=== PATIENT | male | born 1990 | race Caucasian/White ===

== ENCOUNTER 2016-10-15 17:58 | Inpatient (IN) | payer BC ==
[2016-10-15 18:03] VITALS: O2SAT 100
[2016-10-15] MEDS ORDERED: PROPOFOL 1000 MG/100 ML INJ 100 ML ONE (18:06)
[2016-10-15] MEDS ORDERED: DIPHTH/TETANUS/ACEL PERTUSSIS (BOOSTER) 0.5 ML VIAL/PFS IM ONE ×2 (18:07→18:23)
[2016-10-15] MEDS ORDERED: ceFAZolin 2 GM PREMIX 50 ML ONE (18:07)
[2016-10-15] MEDS ORDERED: LORazepam 2 MG/ML VIAL ONE ×2 (18:19→19:12)
[2016-10-15] MEDS ORDERED: fentaNYL CITRATE 250 MCG/5 ML AMP ONE (18:21)
[2016-10-15] MEDS ORDERED: ceFAZolin 2 GM PREMIX 50 ML IV STA (18:23)
[2016-10-15 18:26] LABS: AUTOMATED NEUTROPHIL # 9.7 TH/MM3 (1.8-7.7); BASOPHIL # 0.1 TH/MM3 (0-0.2); BASOPHIL % 0.3 % (0.0-2.0); EOSINOPHIL # 0.1 TH/MM3 (0-0.4); EOSINOPHIL % 0.4 % (0.0-4.0); HEMATOCRIT 45.6 % (39.0-51.0); LYMPH % 35.6 % (9.0-44.0); LYMPHOCYTE # 6.2 TH/MM3 (1.0-4.8); MEAN CELL VOLUME 87.2 FL (80.0-100.0); MEAN CORPUSCULAR HEMOGLOBIN 29.8 PG (27.0-34.0); MEAN CORPUSCULAR HGB CONC 34.2 % (32.0-36.0); MONO % 8.1 % (0.0-8.0); NEUT % 55.6 % (16.0-70.0); PLATELET COUNT 443 TH/MM3 (150-450); RED BLOOD COUNT 5.23 MIL/MM3 (4.50-5.90); RED CELL DISTRIBUTION WIDTH 12.8 % (11.6-17.2); WHITE BLOOD COUNT 17.5 TH/MM3 (4.0-11.0)
[2016-10-15 18:29] LABS: HEMO FLAGS AUTO DIFF
[2016-10-15] MEDS ORDERED: fentaNYL DRIP 250 ML ONE (18:29)
[2016-10-15] MEDS ORDERED: LORazepam 2 MG/ML VIAL IV PUSH ONE (18:30)
[2016-10-15] MEDS ORDERED: fentaNYL DRIP 250 ML IV SCH (18:30)
[2016-10-15] MEDS ORDERED: MANNITOL 12.5 GM/50 ML IV ONE (18:30)
[2016-10-15] MEDS ORDERED: [UNRECOGNIZED DRUG - OTHER] IV ONE (18:30)
[2016-10-15] MEDS ORDERED: PROPOFOL 1000 MG/100 ML INJ 100 ML IV SCH (18:30)
[2016-10-15] MEDS ORDERED: levETIRAcetam 1000 MG INJ 100 ML IV ONE (18:30)
[2016-10-15 18:35] LABS: APTT (PATIENT) 22.6 SEC (24.3-30.1); PROTHROMBIN TIME - PATIENT 10.6 SEC (9.8-11.6)
[2016-10-15 18:37] LABS: I-STAT POTASSIUM 2.9 MMOL/L (3.5-4.9)
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
[2016-10-15] MEDS ORDERED: IOHEXOL 350 MG/ML 10 ML VIAL (for RAD DIAG) IV ONE (18:44)
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
[2016-10-15 18:49] LABS: BICARBONATE 22.7 MEQ/L (21.0-32.0)
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
[2016-10-15 18:52] LABS: POTASSIUM 2.9 MEQ/L (3.5-5.1)
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
[2016-10-15] MEDS ORDERED: SODIUM CHLORIDE 0.9% FLUSH 5 ML FLUSH IV FLUSH PRN (19:00)
[2016-10-15] MEDS ORDERED: CHLORHEXIDINE GLUCONATE 2 % 1 PACK (2 CLOTHS) TOP PRN (19:00)
[2016-10-15] MEDS: POTASSIUM CHLOR 20 MEQ PREMIX 100 ML IV SCH ×2 (19:00→21:00)
[2016-10-15] MEDS ORDERED: MISCELLANEOUS NURSING INFORMATION XX SCH (19:00)
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
[2016-10-15] MEDS ORDERED: ETOMIDATE 20 MG/10 ML VIAL ONE ×2 (19:13→19:14)
[2016-10-15] MEDS ORDERED: MANNITOL INJ 50 ML ONE (19:15)
[2016-10-15 19:18] LABS: PLATELET ESTIMATE SMEAR HIGH (NORMAL); PLATELET MORPHOLOGY NORMAL (NORMAL); SCAN/DIFF AUTO DIFF CONFIRMED
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
[2016-10-15 20:00] VITALS: BP 120/70; PULSE 119; RESP 14; TEMP 97.7; O2SAT 100
[2016-10-15] MEDS: SODIUM CHLOR 0.9% 1000 ML INJ 1,000 ML IV SCH (20:00)
[2016-10-15] MEDS: LACTULOSE SYRUP 20 GM/30 ML CUP PO SCH (20:00)
[2016-10-15 20:40] VITALS: O2SAT 100
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
[2016-10-15] MEDS: SODIUM CHLORIDE 0.9% FLUSH 5 ML FLUSH IV FLUSH SCH (21:00)
[2016-10-15] MEDS: levETIRAcetam INJ 500 MG in SODIUM CHLORIDE 0.9% INJ 100 ML IV SCH (21:00)
[2016-10-15 21:09] LABS: BLOOD GAS BASE EXCESS -7.6 mmol/L (-2-2); BLOOD GAS CARBOXYHEMOGLOBIN 0.7 % (0-4); BLOOD GAS HCO3 19 mmol/L (22-26); BLOOD GAS METHEMOGLOBIN 1.1 % (0-2); BLOOD GAS O2 HGB SATURATION 98 % (90-100); BLOOD GAS OXYGEN CONTENT 20.3 Vol % (12.0-20.0); BLOOD GAS PCO2 46 mmHg (38-42); BLOOD GAS PO2 294 mmHg (61-120); BLOOD GAS TOTAL HGB 14.3 G/DL (12.0-16.0); TEMP CORR TO 98.6
[2016-10-15 21:10] LABS: CRITICAL VALUE YES; DRAW SITE RT RADIAL; FIO2 60 %; NUMBER OF ARTERIAL PUNCTURES 1; OXYGEN DEVICE VENTILATOR; STAT NO; ULNAR PULSE PRESENT; VENT SETTINGS PRVC/AC
[2016-10-15] MEDS: PROPOFOL 1000 MG/100 ML INJ 100 ML IV SCH (21:24)
[2016-10-15] MEDS: MIDAZOLAM HCL 2 MG/2 ML VIAL IV PUSH SCH ×2 (21:24→23:48)
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
[2016-10-15 23:00] VITALS: PULSE 119; O2SAT 100
[2016-10-16] VITALS (18 sets, daily range): BP systolic 95–144; BP diastolic 51–84; PULSE 77–126; RESP 14; TEMP 98.1–100.9; O2SAT 100
[2016-10-16] MEDS: MIDAZOLAM HCL 2 MG/2 ML VIAL IV PUSH SCH ×12 (02:15→22:39)
[2016-10-16] MEDS: fentaNYL DRIP 250 ML IV SCH ×2 (02:16→14:56)
[2016-10-16] MEDS: PROPOFOL 1000 MG/100 ML INJ 100 ML IV SCH ×6 (02:18→20:06)
[2016-10-16] MEDS: CHLORHEXIDINE GLUCONATE 2 % 1 PACK (2 CLOTHS) TOP SCH (04:00)
[2016-10-16] MEDS: SODIUM CHLOR 0.9% 1000 ML INJ 1,000 ML IV SCH ×3 (04:00→16:46)
[2016-10-16] MEDS: PANTOPRAZOLE SODIUM 40 MG VIAL IV SCH ×2 (04:39→08:42)
[2016-10-16 06:21] LABS: AUTOMATED NEUTROPHIL # 10.5 TH/MM3 (1.8-7.7); BASOPHIL % 0.1 % (0.0-2.0); EOSINOPHIL % 0.2 % (0.0-4.0); HEMATOCRIT 35.9 % (39.0-51.0); HEMO FLAGS DIFF FINAL; LYMPH % 16.7 % (9.0-44.0); LYMPHOCYTE # 2.3 TH/MM3 (1.0-4.8); MEAN CORPUSCULAR HEMOGLOBIN 30.4 PG (27.0-34.0); MEAN CORPUSCULAR HGB CONC 35.4 % (32.0-36.0); MONO % 7.3 % (0.0-8.0); NEUT % 75.7 % (16.0-70.0); PLATELET COUNT 246 TH/MM3 (150-450); RED BLOOD COUNT 4.18 MIL/MM3 (4.50-5.90); RED CELL DISTRIBUTION WIDTH 12.9 % (11.6-17.2); WHITE BLOOD COUNT 13.9 TH/MM3 (4.0-11.0)
[2016-10-16 06:44] LABS: BICARBONATE 24.6 MEQ/L (21.0-32.0); POTASSIUM 3.6 MEQ/L (3.5-5.1)
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
[2016-10-16 07:09] LABS: CALCIUM-PROTEIN CORRECTED 7.7 MG/DL (8.5-10.1)
--- NOTE | 2016-10-16 07:20 | RADRPT ---
EXAM DATE/TIME: 10/16/2016 04:13 [facility] COMPARISON: CHEST SINGLE AP, October 15, 2016, 17:50. INDICATIONS : Shortness of breath. MEDICAL HISTORY : None. SURGICAL HISTORY : None. ENCOUNTER: Subsequent ACUITY: 2 days PAIN SCORE: Non-responsive. LOCATION: Bilateral chest FINDINGS: Endotracheal tube tip in satisfactory position. NG coiled in stomach. No focal consolidation or effus ion. No pneumothorax. CONCLUSION: 1. Endotracheal tube and nasogastric tube in satisfactory position. Lungs are clear. Ede Mclain MD on October 16, 2016 at 7:17 Board Certified Radiologist. This report was verified electronically.
[2016-10-16] MEDS ORDERED: MAGNESIUM OXIDE 400 MG TAB PO PRN (08:30)
[2016-10-16] MEDS ORDERED: POTASSIUM PHOSPHATE INJ 30 MMOL in SODIUM CHLOR 0.9% 250 ML INJ 250 ML IV PRN (08:30)
[2016-10-16] MEDS ORDERED: MAGNESIUM SULFATE INJ 4 GM in SODIUM CHLORIDE 0.9% INJ 92 ML IV PRN (08:30)
[2016-10-16] MEDS ORDERED: MAGNESIUM SULFATE INJ 2 GM in SODIUM CHLORIDE 0.9% INJ 96 ML IV PRN (08:30)
[2016-10-16] MEDS ORDERED: SODIUM PHOSPHATE INJ 30 MMOL in SODIUM CHLOR 0.9% 250 ML INJ 240 ML IV PRN (08:30)
[2016-10-16] MEDS ORDERED: POTASSIUM PHOSPHATE MONOBASIC 500 MG TAB PO/TUBE PRN (08:30)
[2016-10-16] MEDS ORDERED: POTASSIUM CHLOR 40 MEQ PREMIX 100 ML IV PRN ×2 (08:30)
[2016-10-16] MEDS ORDERED: POTASSIUM PHOSPHATE MONOBASIC 500 MG TAB PO PRN (08:30)
[2016-10-16] MEDS ORDERED: POTASSIUM CHLOR 20 MEQ PREMIX 100 ML IV PRN ×2 (08:30)
[2016-10-16] MEDS: levETIRAcetam INJ 500 MG in SODIUM CHLORIDE 0.9% INJ 100 ML IV SCH ×2 (08:42→20:05)
[2016-10-16] MEDS: LACTULOSE SYRUP 20 GM/30 ML CUP PO SCH ×2 (08:42→08:43)
[2016-10-16] MEDS: SODIUM CHLORIDE 0.9% FLUSH 5 ML FLUSH IV FLUSH SCH ×2 (08:43→20:05)
[2016-10-16] MEDS ORDERED: DOCUSATE SODIUM 50 MG/SENNA 8.6 MG TAB PO SCH (09:00)
[2016-10-16 09:15] LABS: MAGNESIUM 1.5 MG/DL (1.5-2.5)
[2016-10-16] MEDS ORDERED: COMMODE 3-IN-11 MIS (09:36)
[2016-10-16] MEDS ORDERED: WALKER WHEELS/F1 MIS (09:36)
[2016-10-16] MEDS ORDERED: CRUTMIS25 (09:36)
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
[2016-10-16] MEDS ORDERED: ceFAZolin INJ 1,000 MG VIAL IV ONE (10:35)
[2016-10-16] MEDS ORDERED: ASPI325T PO (10:37)
[2016-10-16] MEDS ORDERED: NORC5TAB PO (10:37)
[2016-10-16] MEDS ORDERED: ENOX40P SQ (10:37)
[2016-10-16] MEDS ORDERED: GENTAMICIN SULFATE 80 MG/2 ML VIAL ONE (10:42)
[2016-10-16] MEDS ORDERED: VANCOMYCIN HCL 1000 MG VIAL ONE (10:42)
[2016-10-16] MEDS ORDERED: MISCELLANEOUS PHARMACY INFORMATION XX ONE (10:45)
[2016-10-16] MEDS ORDERED: MISCELLANEOUS NURSING INFORMATION XX PRN (10:45)
[2016-10-16] MEDS ORDERED: Post-op Orders (for Pharmacy) MISC XX ONE (10:45)
[2016-10-16] MEDS ORDERED: MAGNESIUM HYDROXIDE SUSP 30 ML CUP PO PRN (10:45)
--- NOTE | 2016-10-16 11:56 | PD.OP ---
cc: Paulie Mckeon MD Operative Report Date of Surgery: Oct 16, 2016 Preoperative Diagnosis: Left tibia closed tibia fracture Postoperative Diagnosis: Left grade 1 open tibia fracture Procedure: Left lower leg irrigation and debridement of skin through bone for open fracture. Left lower extremity treatment of tibia fracture with intramedullary nail. Implants: Synthes, 10 x 330. Anesthesia: Gen. Surgeon: Paulie Mckeon Office System Analyst(s): JUNG Reyes The surgical procedure was assisted by my Advanced Registered Nurse Practitioner. My INSTRUMENT MECHANICS SUPERVISOR presence was necessary throughout this case for the manipulation and positioning of the surgical extremity. My INSTRUMENT MECHANICS SUPERVISOR was assisting me throughout the duration of this procedure. The skill set of an Advance Registered Nurse Practitioner was medically necessary to complete this procedure. During the surgical case, the surgical elastic knitter was working at the back table and the Advance Registered Nurse Practitioner was directly assisting me. Operation and Findings: The patient was already intubated and came from the ICU. I got a chance to talk to his mother before surgery and we discussed the risks and benefits of surgical management. She understands the risks of surgery include injury to nerves, blood vessels, bleeding, need for further surgery, nonunion, malunion, DVT, pulmonary embolus, heart attack, stroke, and . The patient received intravenous Ancef and vancomycin. The left lower extremity was prepped and draped in the usual sterile fashion. We found a very small pinhole wound about the medial proximal tibia with some fat coming out of this which meant that this was a grade 1 open fracture. The skin edges were very clean. The skin was incised and we irrigated deep with minimal debridement of devitalized fat. We clean the end of the tibia. We made a small incision in line through the quadriceps tendon placed a protective sheath within the joint. Placed a guidewire for the appropriate starting point and then reamed proximally. We placed a ball-tipped guidewire down past the fracture. We sequentially reamed up to size 11. We placed a 10 mm nail into position. The fracture in AP was anatomic. The fracture on the lateral was mildly displaced but with no significant angulation. This displacement was because of local combination. The nail was secured distally with 2 screws which had excellent purchase. We back slapped the fracture to compress it nicely. We secured it proximally with 3 screws. We irrigated the joint to remove any debris. We closed the quadriceps tendon with 0 Vicryl. We closed skin with 2-0 Vicryl followed by gumaro. A splint was applied. Postoperative plan is 3 days of intravenous antibiotics for the open fracture. Nonweightbearing on the left lower extremity. DVT prophylaxis with Lovenox followed by aspirin. Paulie Mckeon MD Oct 16, 2016 11:56
[2016-10-16] MEDS ORDERED: fentaNYL CITRATE 250 MCG/5 ML AMP ONE (12:17)
--- NOTE | 2016-10-16 14:27 | RADRPT ---
EXAM DATE/TIME: 10/16/2016 11:16 [facility] COMPARISON: TIBIA/FIBULA LEFT (AP/LAT), October 15, 2016, 17:50. INDICATIONS : Open reduction internal fixation. MEDICAL HISTORY : None. SURGICAL HISTORY : None. ENCOUNTER: Subsequent ACUITY: 2 days PAIN SCORE: Non-responsive. LOCATION: Left tibia. FINDINGS: Status post internal fixation for fractures of the tibia. There is good alignment and position of the fracture fragments. There is good alignment of the internal fixation device. There is good alignment at the knee and ankle. Hardware is grossly intact. CONCLUSION: Good position and alignment on postoperative study. Aaron King MD on October 16, 2016 at 14:24 Board Certified Radiologist. This report was verified electronically.
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
[2016-10-16 16:25] LABS: AUTOMATED NEUTROPHIL # 10.6 TH/MM3 (1.8-7.7); BASOPHIL % 0.1 % (0.0-2.0); EOSINOPHIL # 0.1 TH/MM3 (0-0.4); EOSINOPHIL % 0.5 % (0.0-4.0); HEMATOCRIT 35.9 % (39.0-51.0); HEMO FLAGS DIFF FINAL; LYMPH % 14.6 % (9.0-44.0); LYMPHOCYTE # 2.1 TH/MM3 (1.0-4.8); MEAN CELL VOLUME 87.6 FL (80.0-100.0); MEAN CORPUSCULAR HEMOGLOBIN 29.4 PG (27.0-34.0); MEAN CORPUSCULAR HGB CONC 33.6 % (32.0-36.0); MONO % 10.9 % (0.0-8.0); NEUT % 73.9 % (16.0-70.0); PLATELET COUNT 209 TH/MM3 (150-450); RED CELL DISTRIBUTION WIDTH 13.1 % (11.6-17.2); WHITE BLOOD COUNT 14.3 TH/MM3 (4.0-11.0)
[2016-10-16] MEDS: CHLORHEXIDINE 0.12% (ORAL KIT) 15 ML CUP MT SCH (20:05)
[2016-10-16] MEDS: DOCUSATE SODIUM 50 MG/SENNA 8.6 MG TAB PO SCH (20:05)
[2016-10-17] VITALS (17 sets, daily range): BP systolic 116–135; BP diastolic 60–77; PULSE 91–142; RESP 11–20; TEMP 98.8–99.9; O2SAT 96–100
[2016-10-17] MEDS: PROPOFOL 1000 MG/100 ML INJ 100 ML IV SCH ×3 (00:38→04:26)
[2016-10-17] MEDS: fentaNYL DRIP 250 ML IV SCH (00:39)
[2016-10-17] MEDS: MIDAZOLAM HCL 2 MG/2 ML VIAL IV PUSH SCH ×5 (02:22→08:00)
[2016-10-17] MEDS: SODIUM CHLOR 0.9% 1000 ML INJ 1,000 ML IV SCH (04:00)
[2016-10-17] MEDS: CHLORHEXIDINE GLUCONATE 2 % 1 PACK (2 CLOTHS) TOP SCH (04:00)
[2016-10-17 04:16] LABS: AUTOMATED NEUTROPHIL # 9.1 TH/MM3 (1.8-7.7); BASOPHIL % 0.2 % (0.0-2.0); EOSINOPHIL # 0.2 TH/MM3 (0-0.4); EOSINOPHIL % 1.4 % (0.0-4.0); HEMATOCRIT 33.5 % (39.0-51.0); HEMO FLAGS DIFF FINAL; LYMPH % 15.7 % (9.0-44.0); LYMPHOCYTE # 1.9 TH/MM3 (1.0-4.8); MEAN CELL VOLUME 86.8 FL (80.0-100.0); MEAN CORPUSCULAR HEMOGLOBIN 30.3 PG (27.0-34.0); MEAN CORPUSCULAR HGB CONC 34.9 % (32.0-36.0); NEUT % 75.7 % (16.0-70.0); PLATELET COUNT 214 TH/MM3 (150-450); RED BLOOD COUNT 3.86 MIL/MM3 (4.50-5.90); RED CELL DISTRIBUTION WIDTH 13.3 % (11.6-17.2)
[2016-10-17 05:18] LABS: ALKALINE PHOSPHATASE 45 U/L (45-117); ALT (GPT) 30 U/L (12-78); TOTAL BILIRUBIN ADULT 0.6 MG/DL (0.2-1.0)
[2016-10-17 05:20] LABS: ANION GAP 9 MEQ/L (5-15); AST (GOT) 44 U/L (15-37); BICARBONATE 27.3 MEQ/L (21.0-32.0); BLOOD UREA NITROGEN 6 MG/DL (7-18); CHLORIDE 107 MEQ/L (98-107); GLOMERULAR FILTRATION RATE 97 ML/MIN (>89); MAGNESIUM 1.6 MG/DL (1.5-2.5); POTASSIUM 3.6 MEQ/L (3.5-5.1); SODIUM (NA) 143 MEQ/L (136-145)
--- NOTE | 2016-10-17 06:14 | RADRPT ---
EXAM DATE/TIME: 10/17/2016 04:40 [facility] COMPARISON: CHEST SINGLE AP, October 16, 2016, 4:13. INDICATIONS : Shortness of breath. MEDICAL HISTORY : None. SURGICAL HISTORY : None. ENCOUNTER: Subsequent ACUITY: 3 days PAIN SCORE: Non-responsive. LOCATION: Bilateral chest FINDINGS: Endotracheal tube tip in satisfactory position. NG enters stomach. No new infiltrate or effusion. No pneumothorax. CONCLUSION: 1. Endotracheal tube and nasogastric tube unchanged. No acute findings. Ede Mclain MD on October 17, 2016 at 6:12 Board Certified Radiologist. This report was verified electronically.
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
[2016-10-17] MEDS: CHLORHEXIDINE 0.12% (ORAL KIT) 15 ML CUP MT SCH (08:00)
[2016-10-17] MEDS: PANTOPRAZOLE SODIUM 40 MG VIAL IV SCH (08:41)
[2016-10-17] MEDS: levETIRAcetam INJ 500 MG in SODIUM CHLORIDE 0.9% INJ 100 ML IV SCH ×2 (08:41→21:00)
[2016-10-17] MEDS: DOCUSATE SODIUM 50 MG/SENNA 8.6 MG TAB PO SCH ×2 (08:41→21:00)
[2016-10-17] MEDS: SODIUM CHLORIDE 0.9% FLUSH 5 ML FLUSH IV FLUSH SCH (08:41)
[2016-10-17] MEDS: LACTULOSE SYRUP 20 GM/30 ML CUP PO SCH (08:41)
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
[2016-10-17] MEDS ORDERED: MORPHINE SULFATE 4 MG/ML INJ IV PRN (10:45)
[2016-10-17] MEDS: ENOXAPARIN SODIUM 40 MG/0.4 ML SYRINGE SQ SCH (10:56)
[2016-10-17] MEDS: oxyCODONE/ACETAMINOPHEN 5 MG/325 MG TAB PO PRN ×3 (10:56→22:45)
[2016-10-17] MEDS ORDERED: SODIUM CHLORIDE FLUSH PRN IVF (11:00)
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
[2016-10-17] MEDS ORDERED: METOPROLOL TARTRATE 5 MG/5 ML VIAL IV PUSH SCH (18:00)
[2016-10-17] MEDS: MAGNESIUM SULFATE 1 GM PREMIX 100 ML IV SCH ×2 (18:16→21:00)
[2016-10-17] MEDS: METOPROLOL TARTRATE 25 MG TAB PO SCH (21:00)
[2016-10-17] MEDS: SODIUM CHLORIDE FLUSH BID IVF SCH (21:01)
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
[2016-10-18] VITALS (11 sets, daily range): BP systolic 121–133; BP diastolic 59–89; PULSE 96–123; RESP 18–22; TEMP 98.5–99.7; O2SAT 97–100
[2016-10-18] MEDS: oxyCODONE/ACETAMINOPHEN 5 MG/325 MG TAB PO PRN ×4 (03:18→21:11)
[2016-10-18] MEDS: CHLORHEXIDINE GLUCONATE 2 % 1 PACK (2 CLOTHS) TOP SCH (04:00)
[2016-10-18 04:14] LABS: AUTOMATED NEUTROPHIL # 8.6 TH/MM3 (1.8-7.7); BASOPHIL % 0.3 % (0.0-2.0); EOSINOPHIL # 0.2 TH/MM3 (0-0.4); EOSINOPHIL % 1.6 % (0.0-4.0); HEMO FLAGS DIFF FINAL; LYMPH % 14.8 % (9.0-44.0); LYMPHOCYTE # 1.7 TH/MM3 (1.0-4.8); MEAN CELL VOLUME 85.2 FL (80.0-100.0); MEAN CORPUSCULAR HEMOGLOBIN 29.7 PG (27.0-34.0); MEAN CORPUSCULAR HGB CONC 34.9 % (32.0-36.0); MONO % 6.6 % (0.0-8.0); NEUT % 76.7 % (16.0-70.0); PLATELET COUNT 203 TH/MM3 (150-450); RED BLOOD COUNT 3.63 MIL/MM3 (4.50-5.90); RED CELL DISTRIBUTION WIDTH 12.6 % (11.6-17.2); WHITE BLOOD COUNT 11.2 TH/MM3 (4.0-11.0)
[2016-10-18 04:31] LABS: ANION GAP 9 MEQ/L (5-15); BICARBONATE 25.8 MEQ/L (21.0-32.0); BLOOD UREA NITROGEN 3 MG/DL (7-18); CHLORIDE 105 MEQ/L (98-107); MAGNESIUM 2.1 MG/DL (1.5-2.5); POTASSIUM 3.8 MEQ/L (3.5-5.1); SODIUM (NA) 140 MEQ/L (136-145)
[2016-10-18 04:37] LABS: ALKALINE PHOSPHATASE 42 U/L (45-117); ALT (GPT) 27 U/L (12-78); AST (GOT) 42 U/L (15-37); GLOMERULAR FILTRATION RATE 117 ML/MIN (>89)
[2016-10-18] MEDS: SODIUM CHLORIDE FLUSH BID IVF SCH ×2 (08:44→19:50)
[2016-10-18] MEDS: levETIRAcetam INJ 500 MG in SODIUM CHLORIDE 0.9% INJ 100 ML IV SCH (08:44)
[2016-10-18] MEDS: PANTOPRAZOLE SODIUM 40 MG VIAL IV SCH (08:44)
[2016-10-18] MEDS: DOCUSATE SODIUM 50 MG/SENNA 8.6 MG TAB PO SCH ×2 (08:45→19:49)
[2016-10-18] MEDS: METOPROLOL TARTRATE 25 MG TAB PO SCH ×2 (08:45→19:50)
[2016-10-18] MEDS: LACTULOSE SYRUP 20 GM/30 ML CUP PO SCH (09:00)
[2016-10-18] MEDS ORDERED: SENN1TAB PO (10:47)
[2016-10-18] MEDS: POLYETHYLENE GLYCOL 17 GM PKG PO SCH (10:52)
[2016-10-18] MEDS: ENOXAPARIN SODIUM 40 MG/0.4 ML SYRINGE SQ SCH (10:53)
--- NOTE | 2016-10-18 12:20 | PD.ORT.PN ---
Subjective Post Op Day #: 2 Subjective Remarks Patient extubated and sitting on side of bed. Patient talkative. Family at bedside. Patient notes mild to moderate LLE pain Objective Vitals Vital Signs Date Time Temp Pulse Resp B/P Pulse Ox O2 Delivery O2 Flow Rate FiO2 10/18/16 08:00 99.1 96 20 131/81 100 10/18/16 08:00 99 10/18/16 07:34 99 21 10/18/16 07:00 100 Room Air 10/18/16 06:00 106 10/18/16 04:00 106 10/18/16 04:00 98.5 106 22 121/59 97 10/18/16 02:00 99 10/18/16 00:00 98.5 114 18 126/70 97 10/18/16 00:00 116 10/17/16 22:00 106 10/17/16 20:00 99.9 131 16 130/72 100 10/17/16 20:00 131 10/17/16 19:51 96 21 10/17/16 19:00 99 Room Air 10/17/16 18:00 142 10/17/16 16:00 99.9 140 20 128/74 100 10/17/16 16:00 140 10/17/16 14:00 112 I/O 10/17/16 10/17/16 10/17/16 10/18/16 10/18/16 10/18/16 07:00 15:00 23:00 07:00 15:00 23:00 Intake Total 1310 ml 1113 ml 540 ml 270 ml Output Total 500 ml 1000 ml 1500 ml 1000 ml Balance 810 ml 113 ml -960 ml -730 ml Intake Oral 240 ml 120 ml IV Total 1310 ml 1113 ml 300 ml 150 ml Output Urine Total 400 ml 1000 ml 1500 ml 1000 ml Gastric Drainage Total 100 ml 0 ml # Bowel Movements 0 0 0 0 Result Diagram: 10/18/16 0320 10/18/16 0320 Imaging Last 48 hours Impressions Chest X-Ray 10/17/16599 Signed Impressions: Service Date/Time: Monday, October 17, 2016 04:40 - CONCLUSION: 1. Endotracheal tube and nasogastric tube unchanged. No acute findings. Ede Mclain MD Last 24 hours Impressions Chest X-Ray 10/17/16599 Signed Impressions: Service Date/Time: Monday, October 17, 2016 04:40 - CONCLUSION: 1. Endotracheal tube and nasogastric tube unchanged. No acute findings. Ede Mclain MD Objective Remarks Splint and dressing C/D/I. Patient moves toes and has good sensation to light touch. BCR X 5. No weakness with dorsiflexion of great toe. Assessment & Plan Ortho Post Op Day #: 2 Problem List: Assessment and Plan POD # 2 s/p Left I&D tibia IM nail, open fx continue IV abx for total of 3 days for open fx Lovenox DVT prop NWB LLE Patient extubated and talkative. Patient stable per ortho for discharge home once he receives his 3 days of ABX. Patient will f/u with Dr. Mckeon in 1-2 weeks Shawn Hernandez Oct 18, 2016 12:20
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
[2016-10-18] MEDS: levETIRAcetam 500 MG TAB PO SCH (19:50)
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
[2016-10-18 21:04] LABS: MEAN CORPUSCULAR HGB CONC 36.3 % (32.0-36.0)
[2016-10-19] VITALS: BP 145/83; PULSE 107; RESP 18; TEMP 99.7; O2SAT 99
[2016-10-19 05:00] VITALS: BP 137/84; PULSE 105; RESP 18; TEMP 98.1; O2SAT 97
[2016-10-19] MEDS: oxyCODONE/ACETAMINOPHEN 5 MG/325 MG TAB PO PRN ×2 (05:53→09:52)
[2016-10-19 06:00] LABS: BASOPHIL % 0.3 % (0.0-2.0); EOSINOPHIL # 0.2 TH/MM3 (0-0.4); EOSINOPHIL % 2.4 % (0.0-4.0); HEMATOCRIT 30.6 % (39.0-51.0); LYMPH % 16.7 % (9.0-44.0); LYMPHOCYTE # 1.6 TH/MM3 (1.0-4.8); MEAN CELL VOLUME 84.6 FL (80.0-100.0); MEAN CORPUSCULAR HEMOGLOBIN 30.7 PG (27.0-34.0); MONO % 7.2 % (0.0-8.0); NEUT % 73.4 % (16.0-70.0); PLATELET COUNT 252 TH/MM3 (150-450); RED BLOOD COUNT 3.61 MIL/MM3 (4.50-5.90); RED CELL DISTRIBUTION WIDTH 12.9 % (11.6-17.2); WHITE BLOOD COUNT 9.5 TH/MM3 (4.0-11.0)
[2016-10-19 06:06] LABS: HEMO FLAGS AUTO DIFF
[2016-10-19 06:20] LABS: ALKALINE PHOSPHATASE 44 U/L (45-117); ALT (GPT) 29 U/L (12-78); ANION GAP 10 MEQ/L (5-15); AST (GOT) 43 U/L (15-37); BICARBONATE 27.1 MEQ/L (21.0-32.0); BLOOD UREA NITROGEN 9 MG/DL (7-18); CHLORIDE 102 MEQ/L (98-107); GLOMERULAR FILTRATION RATE 117 ML/MIN (>89); MAGNESIUM 2.1 MG/DL (1.5-2.5); POTASSIUM 3.7 MEQ/L (3.5-5.1); SODIUM (NA) 139 MEQ/L (136-145); TOTAL BILIRUBIN ADULT 0.8 MG/DL (0.2-1.0)
[2016-10-19 06:59] LABS: PLATELET ESTIMATE SMEAR NORMAL (NORMAL); PLATELET MORPHOLOGY NORMAL (NORMAL); SCAN/DIFF AUTO DIFF CONFIRMED
[2016-10-19 08:00] VITALS: BP 140/80; PULSE 101; RESP 18; TEMP 98.3; O2SAT 100
[2016-10-19] MEDS: LACTULOSE SYRUP 20 GM/30 ML CUP PO SCH (09:00)
[2016-10-19] MEDS: DOCUSATE SODIUM 50 MG/SENNA 8.6 MG TAB PO SCH (09:00)
[2016-10-19] MEDS: SODIUM CHLORIDE FLUSH BID IVF SCH (09:00)
[2016-10-19] MEDS: POLYETHYLENE GLYCOL 17 GM PKG PO SCH (09:00)
[2016-10-19] MEDS: levETIRAcetam 500 MG TAB PO SCH (09:46)
[2016-10-19] MEDS: PANTOPRAZOLE SODIUM 40 MG VIAL IV SCH (09:46)
[2016-10-19] MEDS: METOPROLOL TARTRATE 25 MG TAB PO SCH (09:46)
[2016-10-19] MEDS: ENOXAPARIN SODIUM 40 MG/0.4 ML SYRINGE SQ SCH (10:33)
[2016-10-19 12:00] VITALS: BP 134/78; PULSE 111; RESP 18; TEMP 99.1; O2SAT 100
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
== END 2016-10-19 14:12 | disposition home or self-care (01) | DRG 492 ==
LOC: NEPI 17:58 → NEDA 18:18 → EDBD 18:18 → N03B 18:54 → N05B 10-18 22:40
PROVIDERS: ADMIT Surgery Trauma Surgery; ATTEND Surgery Trauma Surgery
PROC: 0QSH06Z Reposition Left Tibia with Intramedullary Internal Fixation Device, Open Approach (ICD-10-PCS; principal; 2016-10-16 10:03)
DX: S82.102B Unspecified fracture of upper end of left tibia, initial encounter for open fracture type I or II (principal); J96.01 Acute respiratory failure with hypoxia; G93.40 Encephalopathy, unspecified; S06.0X9A Concussion with loss of consciousness of unspecified duration, initial encounter; R56.9 Unspecified convulsions; S02.2XXA Fracture of nasal bones, initial encounter for closed fracture; F10.129 Alcohol abuse with intoxication, unspecified; S80.01XA Contusion of right knee, initial encounter; S01.511A Laceration without foreign body of lip, initial encounter; E87.6 Hypokalemia; K08.119 Complete loss of teeth due to trauma, unspecified class; Y90.8 Blood alcohol level of 240 mg/100 ml or more; R40.2431 Glasgow coma scale score 3-8, in the field [EMT or ambulance]; R00.0 Tachycardia, unspecified; Z72.0 Tobacco use; V23.4XXA Motorcycle driver injured in collision with car, pick-up truck or van in traffic accident, initial encounter
CPT/HCPCS: 31500; 36600; 70450; 70486; 70498; 71010; 71260; 72125; 72128; 72131; 72170; 73560; 73590; 74177; 76000; 80048; 80053; 80307; 82435; 82565; 82805; 82947; 83735; 84100; 84132; 84155; 84295; 84520; 85025; 85610; 85730; 86850; 86900; 86901; 86920; 87641; 90471; 90715; 94002; 94003; 94150; 94667; 95819; 96374; 96375; 99291; C1713; C9113; G0390; J0690; J1580; J1650; J1953; J2060; J2150; J2250; J3010; J3370; J3475; J7030; J7050; L0150; Q9967